=== PATIENT | male | born 1965 | race Caucasian/White ===

== ENCOUNTER 2020-01-29 19:11 | Emergency (ER) | payer BC ==
[~2020-01-29] VITALS: Ht 167.6 cm; Wt 84.8 kg
[2020-01-29 19:19] VITALS: BP 139/99
--- NOTE | 2020-01-29 19:31 | NUR ---
PT AMBULATED TO ER BED 7
--- NOTE | 2020-01-29 19:34 | NUR ---
PA RESENDEZ BEDSIDE EVALUATING PT
[2020-01-29] MEDS ORDERED: LIDOCAINE MPF 1% 10 MG/ML VIAL INJ ONE (19:40)
[2020-01-29] MEDS ORDERED: KETOROLAC 30 MG/ML VIAL IM ONE (19:40)
--- NOTE | 2020-01-29 20:05 | NUR ---
PT WOUND ON R 1ST FINGER IRRIGATED WITH NORMAL SALINE AND BETADINE
--- NOTE | 2020-01-29 20:12 | NUR ---
PT CUT THE TIP OF HIS RIGHT THUMB WITH A MACHETE WHILE DOING YARD WORK. PT ABLE TO MOVE THUMB, LAC TO BOTH SIDES OF THUMB. BLEEDING CONTROLLED AT THIS TIME. PT HAVING 10/10 PAIN AT THIS TIME. NKA NO MED HX
--- NOTE | 2020-01-29 20:12 | NUR ---
SUTURE SET UP AT BEDSIDE. PT WAS SOAKING THUMB IN BETADINE SOLUTION. PA RESENDEZ AT BEDSIDE.
[2020-01-29] MEDS ORDERED: BACITRACIN OINT 500 UNITS/GM PKT TP ONE ×2 (21:00→21:02)
--- NOTE | 2020-01-29 21:16 | NUR ---
Patient discharged with v/s stable. Written and verbal after care instructions given and explained. Patient alert, oriented and verbalized understanding of instructions. Ambulatory with steady gait. All questions addressed prior to discharge. ID band removed. Patient advised to follow up with PMD. Rx of BACITRACIN, KEFLEX, NORCO, AND IBUPROFEN given. Patient educated on indication of medication including possible reaction and side effects. Opportunity to ask questions provided and answered.
[2020-01-29 21:17] VITALS: BP 139/99
== END 2020-01-29 21:16 | disposition home or self-care (01) ==
LOC: MED 19:11
DX: S62.501B Fracture of unspecified phalanx of right thumb, initial encounter for open fracture (principal); W31.89XA Contact with other specified machinery, initial encounter; Y93.89 Activity, other specified; Y92.89 Other specified places as the place of occurrence of the external cause; Y99.8 Other external cause status; R03.0 Elevated blood-pressure reading, without diagnosis of hypertension
CPT/HCPCS: 12001; 73140; 96372; 99283; J1885; J2001; Q0092

== ENCOUNTER 2020-02-02 10:48 | Emergency (ER) | payer BC ==
[~2020-02-02] VITALS: Ht 167.6 cm; Wt 81.6 kg
[2020-02-02 10:53] VITALS: BP 126/78
[2020-02-02] MEDS ORDERED: VANCOMYCIN 1,000 MG in DEXTROSE 5% 250 ML IV ONE (12:10)
[2020-02-02] MEDS ORDERED: cefTRIAXone 1,000 MG VIAL ONE (12:21)
[2020-02-02 12:39] LABS: BASOPHILS # (AUTO) 0.1 K/uL (0.00-0.22); BASOPHILS % (AUTO) 0.8 % (0.0-2.0); EOSINOPHILS # (AUTO) 0.2 K/uL (0-0.4); EOSINOPHILS % (AUTO) 2.8 % (0.0-4.0); HEMATOCRIT 41.6 % (36-52); HEMOGLOBIN 13.5 g/dL (12.0-18.0); LYMPHOCYTES # (AUTO) 2.2 K/uL (2.0-11.5); LYMPHOCYTES % (AUTO) 32.8 % (20.5-51.1); MEAN CORPUSCULAR HEMOGLOBIN 29 pg (27-31); MEAN CORPUSCULAR HGB CONC 32 g/dL (33-37); MEAN CORPUSCULAR VOLUME 88.9 fL (80-94); MONOCYTES # (AUTO) 0.5 K/uL (0.8-1.0); MONOCYTES % (AUTO) 7.3 % (1.7-9.3); NEUTROPHILS # (AUTO) 3.8 K/uL (1.8-7.7); NEUTROPHILS % (AUTO) 56.3 % (42.2-75.2); PLATELET COUNT (AUTO) 282 K/uL (140-450); RED BLOOD CELL COUNT(AUTO) 4.68 MIL/uL (4.20-6.10); RED CELL DISTRIBUTION WIDTH 14.3 % (11.6-13.7); WHITE BLOOD COUNT (AUTO) 6.7 K/uL (4.8-10.8)
[2020-02-02] MEDS ORDERED: VANCOMYCIN 1,000 MG VIAL ONE (13:06)
[2020-02-02 14:42] LABS: ALBUMIN 3.4 g/dL (3.4-5.0); ANION GAP 13.5 (8-16); CARBON DIOXIDE 26.6 mmol/L (21-32); CREATININE 1.1 mg/dL (0.6-1.3); POTASSIUM 4.1 mmol/L (3.5-5.1); TOTAL BILIRUBIN 0.2 mg/dL (0.0-1.0)
[2020-02-02] MEDS ORDERED: CEPH250C16 PO (16:12)
[2020-02-02] MEDS ORDERED: MORPHINE SULFATE 4 MG/ML SYR ONE (19:54)
[2020-02-02] MEDS ORDERED: ONDANSETRON 4 MG TAB ONE (19:54)
[2020-02-02] MEDS ORDERED: PIPERACILLIN/TAZOBACTAM 3.375 GM in DEXTROSE 5% 50 ML IV ONE (19:55)
[2020-02-02] MEDS ORDERED: MORPHINE SULFATE 4 MG/ML SYR IVP ONE (19:55)
[2020-02-02] MEDS ORDERED: ONDANSETRON 4 MG/2 ML VIAL IVP ONE (19:55)
[2020-02-02] MEDS ORDERED: PIPERACILLIN/TAZOBACTAM 3.375 GM VIAL IV ONE (19:56)
[2020-02-03] MEDS ORDERED: MORPHINE SULFATE 4 MG/ML SYR IVP ONE (00:55)
[2020-02-03] MEDS ORDERED: KETOROLAC 30 MG/ML VIAL IVP ONE (00:55)
[2020-02-03 06:42] VITALS: BP 106/69
== END 2020-02-03 06:39 | disposition short-term general hospital (02) ==
LOC: MED 10:48
DX: S62.511A Displaced fracture of proximal phalanx of right thumb, initial encounter for closed fracture (principal); L03.011 Cellulitis of right finger; X58.XXXA Exposure to other specified factors, initial encounter; Y93.89 Activity, other specified; Y92.89 Other specified places as the place of occurrence of the external cause; Y99.8 Other external cause status
CPT/HCPCS: 36415; 73130; 80053; 82550; 83605; 85025; 85651; 86140; 87040; 96365; 96366; 96367; 96375; 99285; J0696; J1885; J2270; J2405; J2543; J3370; J7060; Q0092; Q0162